=== PATIENT | male | born 1940 | race Caucasian/White ===

== ENCOUNTER 2021-08-24 18:39 | Inpatient (IN) ==
[2021-08-24] MEDS ORDERED: NITROGLYCERIN 2% OINT 1 INCH/GM PACK TOP ONE (18:51)
[2021-08-24] MEDS ORDERED: TICAGRELOR 90 MG TABLET PO STA (18:52)
[2021-08-24] MEDS ORDERED: MORPHINE 2 MG/1 ML SYRINGE IV PRN ×2 (18:52→20:22)
[2021-08-24] MEDS ORDERED: HEPARIN 5,000 UNIT/1 ML VIAL IV ONE (18:52)
[2021-08-24] MEDS ORDERED: ASPIRIN CHEW 81 MG TABLET PO STA (18:52)
[2021-08-24] MEDS ORDERED: MORPHINE 2 MG/1 ML SYRINGE ONE (18:53)
[2021-08-24] MEDS ORDERED: ASPIRIN 325 MG TABLET ONE (18:53)
[2021-08-24] MEDS ORDERED: HEPARIN 5,000 UNIT/1 ML VIAL ONE (18:53)
[2021-08-24] MEDS ORDERED: TICAGRELOR 90 MG TABLET ONE (18:53)
[2021-08-24] MEDS ORDERED: ONDANSETRON 4 MG/2 ML VIAL ONE (18:56)
[2021-08-24] MEDS: NITROGLYCERIN SL 0.4 MG TABLET SL PRN ×3 (19:00→19:10)
[2021-08-24 19:04] LABS: Basophils # 0.1 10*3/uL (0.0-0.2); Basophils % 0.5 % (0.0-0.8); Eosinophils # 0.4 10*3/uL (0.0-0.87); Eosinophils % 2.5 % (0.00-10.9); Hematocrit 44.3 VOL% (42.0-52.0); Hemoglobin 15.4 GM/DL (14.0-18.0); Immature Granulocytes % 0.7 %; Immature Granulocytes Absolute 0.11 #; Lymphocytes # 3.8 10*3/uL (1.4-4.0); Lymphocytes % 25.1 % (21.2-54.2); Mean Corpuscular HGB Conc 34.8 GM/DL (32-36); Mean Corpuscular Volume 93.3 FL (87-102); Mean Platelet Volume 9.1 FL (9.6-12.0); Monocytes # 0.7 10*3/uL (0.11-0.8); Monocytes % 4.7 % (1.7-12.7); Neutrophils % 66.5 % (38.7-73.9); Platelet Count 244 T/CUMM (130-400); Red Blood Count 4.75 MC/CUMM (3.8-5.5); White Blood Count 15.1 T/CUMM (4-12)
[2021-08-24] MEDS ORDERED: ONDANSETRON 4 MG/2 ML VIAL IV STA (19:05)
[2021-08-24] MEDS ORDERED: HEPARIN 1,000 UNIT/1 ML VIAL IV STA (19:11)
[2021-08-24] MEDS ORDERED: HEPARIN 5,000 UNIT/1 ML VIAL IV STA (19:13)
[2021-08-24 19:16] LABS: PT Patient Result 10.7 SECS (10.5-12.0)
[2021-08-24] MEDS ORDERED: fentaNYL 100 MCG/2 ML VIAL ONE (19:19)
[2021-08-24] MEDS ORDERED: NITROGLYCERIN DRIP 50 MG/250 ML BOTTLE IV ONE ×2 (19:19→20:15)
[2021-08-24] MEDS ORDERED: MIDAZOLAM 2 MG/2 ML VIAL ONE ×2 (19:19→19:48)
[2021-08-24] MEDS ORDERED: VERAPAMIL 5 MG/2 ML VIAL ONE (19:20)
[2021-08-24 19:45] LABS: Albumin 4.7 G/DL (3.4-5.0); Bilirubin,Total 0.5 MG/DL (0.20-1.00); Calcium 10.5 MG/DL (8.5-10.1); Osmolality,Calculated 292.5 MOS/KG (273-304); Potassium 4.3 MMOL/L (3.5-5.1); Total Protein 7.9 G/DL (6.4-8.2)
[2021-08-24] MEDS ORDERED: SODIUM CHLORIDE 0.9% 1,000 ML IV STA (20:10)
[2021-08-24] MEDS ORDERED: ACETAMINOPHEN 325 MG TABLET PO PRN (20:12)
[2021-08-24] MEDS ORDERED: ZALEPLON 5 MG CAPSULE PO PRN (20:12)
[2021-08-24] MEDS ORDERED: GLUCAGON 1 MG VIAL IM PRN (20:18)
[2021-08-24] MEDS ORDERED: MORPHINE 10 MG/1 ML VIAL ONE (20:25)
[2021-08-24] MEDS ORDERED: SODIUM CHLORIDE 0.9% 1,000 ML IV SCH (20:30)
[2021-08-24] MEDS ORDERED: DEXTROSE 10% 250 ML BAG IV PRN (20:34)
[2021-08-24] MEDS: NITROGLYCERIN DRIP 50 MG/250 ML BOTTLE IV PRN (20:58)
[2021-08-24] MEDS: ATORVASTATIN 40 MG TABLET PO SCH (21:55)
[2021-08-24] MEDS: INSULIN REGULAR 100 UNIT/ML SUBCUT SCH (21:56)
[2021-08-24] MEDS: HEPARIN DRIP 25,000 UNITS/500 ML PREMIX IV SCH (22:39)
[2021-08-25 03:03] LABS: Basophils % 0.2 % (0.0-0.8); Eosinophils % 0.1 % (0.00-10.9); Hematocrit 37.5 VOL% (42.0-52.0); Hemoglobin 12.9 GM/DL (14.0-18.0); Immature Granulocytes % 0.3 %; Immature Granulocytes Absolute 0.04 #; Lymphocytes # 0.9 10*3/uL (1.4-4.0); Lymphocytes % 6.4 % (21.2-54.2); Mean Corpuscular HGB Conc 34.4 GM/DL (32-36); Mean Corpuscular Volume 94.5 FL (87-102); Monocytes # 0.5 10*3/uL (0.11-0.8); Monocytes % 3.9 % (1.7-12.7); Neutrophils % 89.1 % (38.7-73.9); Platelet Count 193 T/CUMM (130-400); Red Blood Count 3.97 MC/CUMM (3.8-5.5); Red Cell Distribution Width 12.1 % (9.3-17.3); White Blood Count 13.3 T/CUMM (4-12)
[2021-08-25 03:23] LABS: Calcium 8.7 MG/DL (8.5-10.1); Osmolality,Calculated 288.5 MOS/KG (273-304); Potassium 4.6 MMOL/L (3.5-5.1)
[2021-08-25] MEDS ORDERED: HEPARIN 5,000 UNIT/1 ML VIAL IV ONE (03:39)
[2021-08-25] MEDS ORDERED: GLUCAGON 1 MG VIAL IM PRN (06:22)
[2021-08-25] MEDS ORDERED: DEXTROSE 50% 25 GM/50 ML VIAL IV PRN (06:22)
[2021-08-25] MEDS ORDERED: CEFUROXIME INJ 1,500 MG in SODIUM CHLORIDE 0.9% 100 ML IV ONE (06:22)
[2021-08-25] MEDS: PANTOPRAZOLE 40 MG TABLET PO SCH (08:32)
[2021-08-25] MEDS: ASPIRIN EC 81 MG TABLET PO SCH (08:32)
[2021-08-25] MEDS: TAMSULOSIN 0.4 MG CAPSULE PO SCH (08:32)
[2021-08-25] MEDS: DAPAGLIFLOZIN 10 MG TABLET PO SCH (08:32)
[2021-08-25] MEDS: carvediloL 3.125 MG TABLET PO SCH ×2 (08:32→17:11)
[2021-08-25] MEDS: INSULIN REGULAR 100 UNIT/ML SUBCUT SCH ×4 (08:32→20:53)
[2021-08-25] MEDS: CHLORHEXIDINE 0.12% ORAL RINSE 60 ML BOTTLE SWISH/SPIT SCH ×2 (08:32→20:58)
[2021-08-25] MEDS: VALSARTAN 80 MG TABLET PO SCH (08:33)
[2021-08-25 11:03] LABS: Arterial Base Excess iSTAT 0 MMOL/L (-2.5-2.5); Arterial Bicarbonate iSTAT 24.5 MMOL/L (20-26); Arterial O2 Saturation iSTAT 97 % (95-100); Arterial PCO2 iSTAT 39 MM HG (35-48); Arterial PO2 iSTAT 89 MM HG (80-95); Arterial Total CO2 iSTAT 26 MMO/L (23-27)
[2021-08-25] MEDS: SODIUM CHLORIDE 0.9% 1,000 ML IV SCH (11:49)
[2021-08-25 13:15] LABS: CKMB % 12.23 %
[2021-08-25 13:27] LABS: High Sensitive Troponin I* 117297.8 ng/L (0-78)
[2021-08-25] MEDS: CHLORHEXIDINE 4% SOLN 118 ML BOTTLE TOP SCH ×2 (16:36→21:51)
[2021-08-25] MEDS ORDERED: CLORAZEPATE 3.75 MG TABLET PO PRN (19:30)
[2021-08-25 19:51] LABS: CKMB % 8.58 %
[2021-08-25] MEDS: ATORVASTATIN 40 MG TABLET PO SCH (20:56)
[2021-08-26] MEDS: HEPARIN DRIP 25,000 UNITS/500 ML PREMIX IV SCH (03:53)
[2021-08-26] MEDS: NITROGLYCERIN DRIP 50 MG/250 ML BOTTLE IV PRN (03:53)
[2021-08-26] MEDS ORDERED: PAPAVERINE 60 MG/2 ML VIAL ONE (04:13)
[2021-08-26] MEDS ORDERED: VANCOMYCIN 1,000 MG VIAL ONE (04:14)
[2021-08-26] MEDS ORDERED: VANCOMYCIN 500 MG VIAL ONE (04:14)
[2021-08-26] MEDS ORDERED: CEFUROXIME INJ 1,500 MG in SODIUM CHLORIDE 0.9% 100 ML IV ONE (05:00)
[2021-08-26 05:15] LABS: Basophils % 0.4 % (0.0-0.8); Eosinophils # 0.2 10*3/uL (0.0-0.87); Eosinophils % 1.4 % (0.00-10.9); Hematocrit 35.8 VOL% (42.0-52.0); Hemoglobin 12.3 GM/DL (14.0-18.0); Immature Granulocytes % 0.4 %; Immature Granulocytes Absolute 0.04 #; Lymphocytes # 1.4 10*3/uL (1.4-4.0); Mean Corpuscular HGB Conc 34.4 GM/DL (32-36); Mean Corpuscular Volume 94.2 FL (87-102); Mean Platelet Volume 8.9 FL (9.6-12.0); Monocytes # 1.5 10*3/uL (0.11-0.8); Monocytes % 13.5 % (1.7-12.7); Neutrophils % 71.3 % (38.7-73.9); Platelet Count 167 T/CUMM (130-400); Red Cell Distribution Width 12.1 % (9.3-17.3); White Blood Count 10.9 T/CUMM (4-12)
[2021-08-26] MEDS: CHLORHEXIDINE 4% SOLN 118 ML BOTTLE TOP SCH (05:25)
[2021-08-26] MEDS ORDERED: DIAZEPAM 5 MG TABLET PO ONE (05:30)
[2021-08-26 05:42] LABS: Albumin 3.4 G/DL (3.4-5.0); Bilirubin,Total 0.9 MG/DL (0.20-1.00); Calcium 8.9 MG/DL (8.5-10.1); Osmolality,Calculated 281.5 MOS/KG (273-304); Potassium 3.7 MMOL/L (3.5-5.1); Total Protein 6.4 G/DL (6.4-8.2)
[2021-08-26] MEDS ORDERED: MIDAZOLAM 10 MG/2 ML VIAL ONE ×4 (06:02→09:39)
[2021-08-26] MEDS ORDERED: MINERAL OIL/PETROLATUM OPH OINT 3.5 GM TUBE ONE (06:02)
[2021-08-26 06:03] LABS: CKMB % 4.14 %; High Sensitive Troponin I* 33104.3 ng/L (0-78)
[2021-08-26] MEDS ORDERED: AMINOCAPROIC ACID 5,000 MG/20 ML VIAL ONE (06:04)
[2021-08-26] MEDS ORDERED: SODIUM CHLORIDE 0.9% 250 ML IV ONE ×2 (06:04→06:25)
[2021-08-26] MEDS ORDERED: SODIUM CHLORIDE 0.9% 1,000 ML IV ONE ×2 (06:04→09:55)
[2021-08-26] MEDS ORDERED: HEPARIN/NACL 0.9% 2 UNITS/ML 1,000 UNIT/500 ML BAG IV ONE (06:04)
[2021-08-26] MEDS ORDERED: LACTATED RINGERS 1,000 ML IV ONE ×2 (06:04→10:50)
[2021-08-26] MEDS ORDERED: SUFentanil 250 MCG/5 ML AMP ONE ×4 (06:09)
[2021-08-26] MEDS ORDERED: SODIUM CHLORIDE 0.9% 100 ML IV ONE (06:10)
[2021-08-26] MEDS ORDERED: VECURONIUM 10 MG VIAL IV ONE ×3 (06:19→09:39)
[2021-08-26] MEDS ORDERED: LIDOCAINE 2% 5 ML VIAL ONE ×2 (06:20→12:15)
[2021-08-26 06:21] LABS: Risk Ratio 3.53; VLDL Cholesterol 17.4 MG/DL
[2021-08-26] MEDS ORDERED: ETOMIDATE 40 MG/20 ML VIAL IV ONE (06:22)
[2021-08-26] MEDS ORDERED: ePHEDrine 50 MG/ML VIAL ONE (06:24)
[2021-08-26] MEDS ORDERED: EPINEPHrine 1 MG/ML VIAL ONE (06:25)
[2021-08-26 07:38] LABS: ABG Base Excess 0.5 MMOL/L (-2.5-2.5); ABG HCO3 24.9 MMOL/L (20-26); ABG PCO2 35.1 MM HG (35-48); ABG PH 7.446 (7.35-7.45); ABG TCO2 21.5 MMOL/L (23-27); Glucose Heart Surgery 117 MG/DL (74-106); Hematocrit Heart Surgery 34.9 PERCENT (42-52); Hemoglobin Heart Surgery 11.3 G/DL (14.0-18.0); Ionized Calcium Arterial 1.13 MMOL/L (1.21-1.46); PCO2 Patient Temp Arterial 35.1 MMHG; PH Patient Temp Arterial 7.446; Patient Temperature 37 CELCIUS; Potassium Heart/CVR 3.5 MMOL/L (3.5-5.1); Sodium Heart/CVR 141 MMOL/L (135-145)
[2021-08-26] MEDS ORDERED: SODIUM BICARBONATE 50 MEQ/50 ML VIAL IV ONE ×2 (07:38→12:17)
[2021-08-26] MEDS ORDERED: NITROPRUSSIDE 50 MG/2 ML VIAL ONE (07:38)
[2021-08-26] MEDS ORDERED: CALCIUM CHLORIDE 1,000 MG/10 ML SYRINGE IV ONE (07:39)
[2021-08-26] MEDS ORDERED: POTASSIUM CHLORIDE RIDER 20 MEQ/100 ML PREMIX IV ONE (07:39)
[2021-08-26] MEDS ORDERED: PHENYLEPHRINE DRIP 40 MG/250 ML PREMIX IV ONE (07:39)
[2021-08-26 07:53] LABS: Glucose,Urine (UA) >1000 mg/dL (Negative); Protein,Urine Negative (Negative); RBC,Urine 1 /HPF (0-4); Urine Appearance Slightly Hazy (Clear); Urine Color Yellow (Yellow); Urine Specific Gravity 1.015 (1.001-1.035); Urine pH 6.5 (4.5-8.0)
[2021-08-26 07:54] LABS: Bilirubin,Urine Negative (Negative); Blood, Urine Trace mg/dL (Negative); Ketones,Urine Trace mg/dL (Negative); Nitrite,Urine Positive (Negative)
[2021-08-26] MEDS: SODIUM CHLORIDE 0.9% 1,000 ML IV SCH (08:09)
[2021-08-26] MEDS: INSULIN REGULAR 100 UNIT/ML SUBCUT SCH (08:09)
[2021-08-26] MEDS: DAPAGLIFLOZIN 10 MG TABLET PO SCH (08:10)
[2021-08-26] MEDS: ASPIRIN EC 81 MG TABLET PO SCH (08:10)
[2021-08-26] MEDS: VALSARTAN 80 MG TABLET PO SCH (08:10)
[2021-08-26] MEDS: CHLORHEXIDINE 0.12% ORAL RINSE 60 ML BOTTLE SWISH/SPIT SCH (08:10)
[2021-08-26] MEDS: TAMSULOSIN 0.4 MG CAPSULE PO SCH (08:10)
[2021-08-26] MEDS: PANTOPRAZOLE 40 MG TABLET PO SCH (08:10)
[2021-08-26] MEDS: carvediloL 3.125 MG TABLET PO SCH (08:10)
[2021-08-26] MEDS ORDERED: PHENYLEPHRINE 1 MG/10 ML SYRINGE IV ONE (08:42)
[2021-08-26] MEDS ORDERED: propofoL 200 MG/20 ML VIAL IV ONE (08:42)
[2021-08-26 08:59] LABS: Hematocrit Heart Surgery 23.3 PERCENT (42-52); Hemoglobin Heart Surgery 7.5 G/DL (14.0-18.0); PCO2 Patient Temp Venous 33.6 MM HG; PH Patient Temp Venous 7.46; PO2 Patient Temp Venous 43.2 MM HG; Potassium Heart/CVR 4.2 MMOL/L (3.5-5.1); VBG Base Excess 0.4 MEQ/L (0-4); VBG HCO3 24.6 MEQ/L (24-28); VBG Oxygen Saturation 83.4 %; VBG PCO2 35.3 MMHG (41-51); VBG PH 7.445; VBG PO2 46.2 MMHG (17-40); VBG Total CO2 22.8 MMOL/L
[2021-08-26] MEDS ORDERED: PHENYLEPHRINE DRIP 20 MG/250 ML PREMIX IV ONE (09:21)
[2021-08-26 09:26] LABS: Hematocrit Heart Surgery 25.6 PERCENT (42-52); Hemoglobin Heart Surgery 8.2 G/DL (14.0-18.0); PH Patient Temp Venous 7.469; PO2 Patient Temp Venous 37.2 MM HG; Potassium Heart/CVR 3.9 MMOL/L (3.5-5.1); VBG Base Excess 0.1 MEQ/L (0-4); VBG HCO3 24.3 MEQ/L (24-28); VBG Oxygen Saturation 80.2 %; VBG PH 7.425; VBG PO2 45.8 MMHG (17-40); VBG Total CO2 22.6 MMOL/L
[2021-08-26] MEDS ORDERED: CALCIUM CHLORIDE 1,000 MG/10 ML VIAL IV ONE (09:43)
[2021-08-26 09:56] LABS: Hematocrit Heart Surgery 25.6 PERCENT (42-52); Hemoglobin Heart Surgery 8.2 G/DL (14.0-18.0); PCO2 Patient Temp Venous 37.6 MM HG; PH Patient Temp Venous 7.419; PO2 Patient Temp Venous 36.6 MM HG; Potassium Heart/CVR 4.2 MMOL/L (3.5-5.1); VBG HCO3 24.1 MEQ/L (24-28); VBG Oxygen Saturation 71.7 %; VBG PCO2 39.4 MMHG (41-51); VBG PH 7.404; VBG PO2 39.3 MMHG (17-40)
[2021-08-26] MEDS ORDERED: FAMOTIDINE 20 MG/2 ML VIAL IV ONE (10:21)
[2021-08-26] MEDS ORDERED: diphenhydrAMINE 50 MG/1 ML VIAL ONE (10:22)
[2021-08-26 10:28] LABS: ABG Base Excess 0.1 MMOL/L (-2.5-2.5); ABG HCO3 24.6 MMOL/L (20-26); ABG PCO2 35.5 MM HG (35-48); ABG PH 7.438 (7.35-7.45); ABG TCO2 22.3 MMOL/L (23-27); Glucose Heart Surgery 231 MG/DL (74-106); Hematocrit Heart Surgery 25.3 PERCENT (42-52); Hemoglobin Heart Surgery 8.1 G/DL (14.0-18.0); Ionized Calcium Arterial 1.23 MMOL/L (1.21-1.46); PCO2 Patient Temp Arterial 35.5 MMHG; PH Patient Temp Arterial 7.438; Patient Temperature 37 CELCIUS; Potassium Heart/CVR 3.7 MMOL/L (3.5-5.1); Sodium Heart/CVR 139 MMOL/L (135-145)
[2021-08-26] MEDS ORDERED: methylPREDNISolone SOD SUC 125 MG/2 ML VIAL ONE (10:28)
[2021-08-26] MEDS ORDERED: INSULIN REGULAR 100 UNIT/ML IV ONE (10:49)
[2021-08-26] MEDS ORDERED: NITROPRUSSIDE 100 MG in DEXTROSE 5% 250 ML IV PRN (10:49)
[2021-08-26] MEDS ORDERED: ONDANSETRON 4 MG/2 ML VIAL IV PRN (10:49)
[2021-08-26] MEDS ORDERED: INSULIN REGULAR DRIP 100 ML IV SCH (10:49)
[2021-08-26] MEDS ORDERED: MORPHINE 10 MG/1 ML VIAL IV PRN (10:49)
[2021-08-26] MEDS ORDERED: ACETAMINOPHEN 650 MG SUPP RECTAL PRN (10:49)
[2021-08-26] MEDS ORDERED: VECURONIUM 10 MG VIAL IV PRN ×2 (10:49)
[2021-08-26] MEDS ORDERED: MIDAZOLAM 10 MG/2 ML VIAL IV PRN (10:49)
[2021-08-26] MEDS ORDERED: MAGNESIUM SULF RIDER 2 GM/50 ML PREMIX IV PRN (10:49)
[2021-08-26] MEDS ORDERED: DEXTROSE 50% 25 GM/50 ML VIAL IV PRN ×2 (10:49)
[2021-08-26] MEDS ORDERED: MAGNESIUM SULF RIDER 4 GM/100 ML PREMIX IV PRN (10:49)
[2021-08-26] MEDS ORDERED: CALCIUM CHLORIDE 1,000 MG/10 ML SYRINGE IV PRN (10:49)
[2021-08-26] MEDS ORDERED: DEXTROSE 10% 250 ML BAG IV PRN ×3 (11:02→11:30)
[2021-08-26] MEDS ORDERED: PROTAMINE SULFATE 50 MG/5 ML VIAL IV ONE ×2 (11:10→12:17)
[2021-08-26 11:12] LABS: ABG Base Excess -2.6 MMOL/L (-2.5-2.5); ABG HCO3 22.2 MMOL/L (20-26); ABG PCO2 39.5 MM HG (35-48); ABG PH 7.363 (7.35-7.45); Glucose Heart Surgery 323 MG/DL (74-106); Hematocrit Heart Surgery 25.3 PERCENT (42-52); Hemoglobin Heart Surgery 8.1 G/DL (14.0-18.0); Potassium Heart/CVR 3.8 MMOL/L (3.5-5.1)
[2021-08-26] MEDS: SODIUM CHLORIDE 0.45% 1,000 ML IV SCH ×2 (11:48)
[2021-08-26] MEDS: PHENYLEPHRINE DRIP 40 MG/250 ML PREMIX IV PRN ×2 (11:48→23:23)
[2021-08-26] MEDS: LACTATED RINGERS 250 ML IV PRN ×15 (11:48→23:00)
[2021-08-26] MEDS ORDERED: THROMBIN TOPICAL (RECOMBINANT) 5,000 UNIT VIAL TOP ONE (11:53)
[2021-08-26] MEDS ORDERED: SEVOFLURANE 1 UNIT/15 MINUTE INH ONE (12:13)
[2021-08-26] MEDS ORDERED: ALBUMIN 25% 25 GM/100 ML VIAL IV ONE (12:14)
[2021-08-26] MEDS ORDERED: DEXTROSE 5% KCL 20 MEQ 20 MEQ/1,000 ML BAG IV ONE (12:15)
[2021-08-26] MEDS ORDERED: MAGNESIUM SULFATE 5 GM/10 ML VIAL IV ONE (12:15)
[2021-08-26] MEDS ORDERED: methylPREDNISolone SOD SUC 1,000 MG/8 ML VIAL ONE (12:15)
[2021-08-26] MEDS ORDERED: PROTAMINE SULFATE 250 MG/25 ML VIAL IV ONE (12:15)
[2021-08-26] MEDS: ALBUMIN 5% 12.5 GM/250 ML VIAL IV PRN ×6 (12:16→23:45)
[2021-08-26] MEDS ORDERED: FUROSEMIDE 20 MG/2 ML VIAL ONE (12:16)
[2021-08-26] MEDS ORDERED: HEPARIN 10,000 UNIT/10 ML VIAL ONE (12:16)
[2021-08-26] MEDS ORDERED: MANNITOL 12.5 GM/50 ML VIAL IV ONE (12:16)
[2021-08-26] MEDS ORDERED: DOBUTamine 500 MG/250 ML PREMIX IV PRN (12:34)
[2021-08-26 12:45] LABS: ABG Base Excess -1.7 MMOL/L (-2.5-2.5); ABG PCO2 32.2 MM HG (35-48); ABG PH 7.441 (7.35-7.45); ABG TCO2 20.4 MMOL/L (23-27); Glucose Heart Surgery 304 MG/DL (74-106); Hematocrit Heart Surgery 24.7 PERCENT (42-52); Hemoglobin Heart Surgery 7.9 G/DL (14.0-18.0); Ionized Calcium Arterial 1.09 MMOL/L (1.21-1.46); PCO2 Patient Temp Arterial 30.7 MMHG; PH Patient Temp Arterial 7.455; Patient Temperature 36 CELCIUS; Potassium Heart/CVR 3.8 MMOL/L (3.5-5.1); Sodium Heart/CVR 143 MMOL/L (135-145)
[2021-08-26 12:47] LABS: Basophils % 0.2 % (0.0-0.8); Eosinophils # 0.1 10*3/uL (0.0-0.87); Eosinophils % 0.4 % (0.00-10.9); Hematocrit 22.9 VOL% (42.0-52.0); Hemoglobin 7.8 GM/DL (14.0-18.0); Immature Granulocytes % 0.8 %; Immature Granulocytes Absolute 0.13 #; Lymphocytes # 1.4 10*3/uL (1.4-4.0); Mean Corpuscular HGB Conc 34.1 GM/DL (32-36); Mean Corpuscular Volume 94.6 FL (87-102); Mean Platelet Volume 9.8 FL (9.6-12.0); Monocytes # 1.4 10*3/uL (0.11-0.8); Monocytes % 8.4 % (1.7-12.7); Neutrophils % 82.2 % (38.7-73.9); Platelet Count 219 T/CUMM (130-400); Red Blood Count 2.42 MC/CUMM (3.8-5.5); Red Cell Distribution Width 13.6 % (9.3-17.3); White Blood Count 17.2 T/CUMM (4-12)
[2021-08-26] MEDS: DOBUTamine 500 MG/250 ML PREMIX IV SCH (12:52)
[2021-08-26 12:57] LABS: INR 1.2; PT Patient Result 12.8 SECS (10.5-12.0); Partial Thromboplastin Time 28.8 SECS (23.8-32.1)
[2021-08-26] MEDS: POTASSIUM CHLORIDE RIDER 20 MEQ/100 ML PREMIX IV PRN ×3 (13:06→22:54)
[2021-08-26 13:13] LABS: Albumin 2.9 G/DL (3.4-5.0); Bilirubin,Total 1.3 MG/DL (0.20-1.00); Calcium 7.8 MG/DL (8.5-10.1); Osmolality,Calculated 300.7 MOS/KG (273-304); Potassium 3.9 MMOL/L (3.5-5.1); Total Protein 5.1 G/DL (6.4-8.2)
[2021-08-26 13:21] LABS: CKMB % 5.98 %
[2021-08-26] MEDS: POTASSIUM CHLORIDE RIDER 10 MEQ/100 ML PREMIX IV PRN ×2 (13:44→18:44)
[2021-08-26 14:05] LABS: ABG Base Excess -2.9 MMOL/L (-2.5-2.5); ABG Oxygen Saturation 99.9 % (95-100); ABG PCO2 31.6 MM HG (35-48); ABG PH 7.427 (7.35-7.45); ABG TCO2 19.3 MMOL/L (23-27); Glucose Heart Surgery 269 MG/DL (74-106); Hematocrit Heart Surgery 26.1 PERCENT (42-52); Hemoglobin Heart Surgery 8.4 G/DL (14.0-18.0); Potassium Heart/CVR 4.7 MMOL/L (3.5-5.1)
[2021-08-26] MEDS ORDERED: CALCIUM GLUCONATE RIDER 1,000 MG/50 ML PREMIX IV ONE (14:38)
[2021-08-26 15:40] LABS: ABG Base Excess -1.6 MMOL/L (-2.5-2.5); ABG HCO3 23.1 MMOL/L (20-26); ABG Oxygen Saturation 99.6 % (95-100); ABG PCO2 31.6 MM HG (35-48); ABG PH 7.447 (7.35-7.45); ABG TCO2 19.9 MMOL/L (23-27); Glucose Heart Surgery 221 MG/DL (74-106); Hematocrit Heart Surgery 29.7 PERCENT (42-52); Hemoglobin Heart Surgery 9.6 G/DL (14.0-18.0); Potassium Heart/CVR 3.8 MMOL/L (3.5-5.1)
[2021-08-26 17:44] LABS: ABG Base Excess -2.4 MMOL/L (-2.5-2.5); ABG HCO3 22.4 MMOL/L (20-26); ABG Oxygen Saturation 99.5 % (95-100); ABG PCO2 36.7 MM HG (35-48); ABG PH 7.389 (7.35-7.45); ABG TCO2 20.1 MMOL/L (23-27); Glucose Heart Surgery 150 MG/DL (74-106); Hemoglobin Heart Surgery 10.4 G/DL (14.0-18.0); Potassium Heart/CVR 3.5 MMOL/L (3.5-5.1)
[2021-08-26] MEDS: CEFUROXIME INJ 1,500 MG in SODIUM CHLORIDE 0.9% 100 ML IV SCH (18:06)
[2021-08-26] MEDS ORDERED: FUROSEMIDE 40 MG/4 ML VIAL IV ONE (19:41)
[2021-08-26 20:36] LABS: ABG Base Excess -1.9 MMOL/L (-2.5-2.5); ABG HCO3 22.9 MMOL/L (20-26); ABG Oxygen Saturation 99.4 % (95-100); ABG PCO2 37.4 MM HG (35-48); ABG PH 7.391 (7.35-7.45); ABG TCO2 20.7 MMOL/L (23-27); Glucose Heart Surgery 150 MG/DL (74-106); Hematocrit Heart Surgery 30.8 PERCENT (42-52); Hemoglobin Heart Surgery 9.9 G/DL (14.0-18.0)
[2021-08-26 21:04] LABS: CKMB % 6.55 %; High Sensitive Troponin I* 18832.4 ng/L (0-78)
[2021-08-27] MEDS: LACTATED RINGERS 250 ML IV PRN (00:05)
[2021-08-27 00:32] LABS: ABG Base Excess -0.7 MMOL/L (-2.5-2.5); ABG HCO3 23.8 MMOL/L (20-26); ABG Oxygen Saturation 99.3 % (95-100); ABG PCO2 36.9 MM HG (35-48); ABG PH 7.413 (7.35-7.45); ABG TCO2 21.6 MMOL/L (23-27); Glucose Heart Surgery 113 MG/DL (74-106); Hematocrit Heart Surgery 28.8 PERCENT (42-52); Hemoglobin Heart Surgery 9.3 G/DL (14.0-18.0); Potassium Heart/CVR 3.6 MMOL/L (3.5-5.1)
[2021-08-27] MEDS: POTASSIUM CHLORIDE RIDER 20 MEQ/100 ML PREMIX IV PRN ×3 (00:50→22:21)
[2021-08-27] MEDS: MIDAZOLAM 2 MG/2 ML VIAL IV PRN ×4 (01:41→06:39)
[2021-08-27] MEDS: POTASSIUM CHLORIDE RIDER 10 MEQ/100 ML PREMIX IV PRN ×3 (02:00→23:33)
[2021-08-27] MEDS: CHLORHEXIDINE 0.12% ORAL RINSE 60 ML BOTTLE SWISH/SPIT SCH ×3 (02:09→20:02)
[2021-08-27] MEDS: CHLORHEXIDINE 4% SOLN 118 ML BOTTLE TOP PRN (02:11)
[2021-08-27] MEDS: INSULIN REGULAR 100 UNIT/ML IV PRN ×2 (02:37→05:13)
[2021-08-27 03:43] LABS: ABG Base Excess -1.8 MMOL/L (-2.5-2.5); ABG HCO3 22.9 MMOL/L (20-26); ABG Oxygen Saturation 98.7 % (95-100); ABG PH 7.404 (7.35-7.45); ABG TCO2 20.4 MMOL/L (23-27); Glucose Heart Surgery 121 MG/DL (74-106); Hematocrit Heart Surgery 32.3 PERCENT (42-52); Hemoglobin Heart Surgery 10.4 G/DL (14.0-18.0); Potassium Heart/CVR 3.9 MMOL/L (3.5-5.1)
[2021-08-27 04:02] LABS: Basophils % 0.2 % (0.0-0.8); Hematocrit 30.7 VOL% (42.0-52.0); Hemoglobin 10.4 GM/DL (14.0-18.0); Immature Granulocytes % 0.3 %; Immature Granulocytes Absolute 0.03 #; Lymphocytes # 0.9 10*3/uL (1.4-4.0); Lymphocytes % 7.6 % (21.2-54.2); Mean Corpuscular HGB Conc 33.9 GM/DL (32-36); Mean Corpuscular Volume 86.7 FL (87-102); Mean Platelet Volume 10.2 FL (9.6-12.0); Monocytes % 8.8 % (1.7-12.7); Neutrophils % 83.1 % (38.7-73.9); Platelet Count 105 T/CUMM (130-400); Red Blood Count 3.54 MC/CUMM (3.8-5.5); Red Cell Distribution Width 15.9 % (9.3-17.3); White Blood Count 11.3 T/CUMM (4-12)
[2021-08-27 04:11] LABS: Albumin 3.4 G/DL (3.4-5.0); Bilirubin,Direct 0.3 MG/DL (0.0-0.20); Bilirubin,Total 1.1 MG/DL (0.20-1.00); Calcium 7.6 MG/DL (8.5-10.1); Osmolality,Calculated 290.7 MOS/KG (273-304); Total Protein 5.6 G/DL (6.4-8.2)
[2021-08-27 04:25] LABS: CKMB % 8.84 %
[2021-08-27 04:30] LABS: High Sensitive Troponin I* 25658.2 ng/L (0-78)
[2021-08-27] MEDS: CEFUROXIME INJ 1,500 MG in SODIUM CHLORIDE 0.9% 100 ML IV SCH ×2 (05:30→18:18)
[2021-08-27] MEDS: DEXMEDETOMIDINE 200 MCG in SODIUM CHLORIDE 0.9% 48 ML IV PRN ×2 (06:35→09:33)
[2021-08-27 06:43] LABS: ABG Base Excess -2.6 MMOL/L (-2.5-2.5); ABG HCO3 22.2 MMOL/L (20-26); ABG PCO2 35.1 MM HG (35-48); ABG PH 7.398 (7.35-7.45); ABG TCO2 19.5 MMOL/L (23-27); Glucose Heart Surgery 140 MG/DL (74-106); Hematocrit Heart Surgery 32.7 PERCENT (42-52); Hemoglobin Heart Surgery 10.6 G/DL (14.0-18.0); Potassium Heart/CVR 4.2 MMOL/L (3.5-5.1)
[2021-08-27] MEDS: INSULIN REGULAR 100 UNIT/ML SUBCUT SCH ×4 (07:53→20:01)
[2021-08-27] MEDS ORDERED: INSULIN REGULAR 100 UNIT/ML SUBCUT SCH (08:00)
[2021-08-27] MEDS: SODIUM CHLORIDE 0.45% 1,000 ML IV SCH ×2 (12:19)
[2021-08-27] MEDS: DOBUTamine 500 MG/250 ML PREMIX IV SCH (13:33)
[2021-08-27 13:52] LABS: ABG Base Excess -2.6 MMOL/L (-2.5-2.5); ABG HCO3 22.3 MMOL/L (20-26); ABG Oxygen Saturation 98.8 % (95-100); ABG PCO2 41.8 MM HG (35-48); ABG PH 7.348 (7.35-7.45); ABG TCO2 20.6 MMOL/L (23-27); Glucose Heart Surgery 160 MG/DL (74-106); Hematocrit Heart Surgery 35.2 PERCENT (42-52); Hemoglobin Heart Surgery 11.4 G/DL (14.0-18.0); Potassium Heart/CVR 4.2 MMOL/L (3.5-5.1)
[2021-08-27] MEDS: PIPERACILLIN/TAZOBACTAM 3,375 MG in SODIUM CHLORIDE 0.9% 100 ML IV SCH ×2 (15:12→22:21)
[2021-08-27] MEDS: ALBUMIN 5% 12.5 GM/250 ML VIAL IV PRN ×2 (16:10→16:37)
[2021-08-27 16:25] LABS: ABG HCO3 22.8 MMOL/L (20-26); ABG Oxygen Saturation 99.3 % (95-100); ABG PCO2 39.6 MM HG (35-48); ABG PH 7.373 (7.35-7.45); ABG TCO2 20.8 MMOL/L (23-27); Glucose Heart Surgery 150 MG/DL (74-106); Hemoglobin Heart Surgery 10.7 G/DL (14.0-18.0); Potassium Heart/CVR 4.1 MMOL/L (3.5-5.1)
[2021-08-27] MEDS: oxyCODONE/ACETAMINOPHEN 5-325 MG TABLET PO PRN (20:57)
[2021-08-27] MEDS: CLORAZEPATE 7.5 MG TABLET PO PRN (20:57)
[2021-08-27 21:06] LABS: ABG HCO3 21.8 MMOL/L (20-26); ABG PCO2 32.5 MM HG (35-48); ABG PH 7.415 (7.35-7.45); ABG PO2 70.1 MM HG (80-95); ABG TCO2 18.9 MMOL/L (23-27); Glucose Heart Surgery 161 MG/DL (74-106); Hematocrit Heart Surgery 31.4 PERCENT (42-52); Hemoglobin Heart Surgery 10.2 G/DL (14.0-18.0); Potassium Heart/CVR 3.9 MMOL/L (3.5-5.1)
[2021-08-27] MEDS ORDERED: FUROSEMIDE 40 MG/4 ML VIAL IV ONE (21:31)
[2021-08-27] MEDS: HALOPERIDOL 5 MG/ML AMP IV PRN (21:54)
[2021-08-28] MEDS: CLORAZEPATE 7.5 MG TABLET PO PRN (00:27)
[2021-08-28] MEDS: oxyCODONE/ACETAMINOPHEN 5-325 MG TABLET PO PRN (00:28)
[2021-08-28 03:30] LABS: ABG Base Excess -1.1 MMOL/L (-2.5-2.5); ABG HCO3 23.5 MMOL/L (20-26); ABG Oxygen Saturation 98.5 % (95-100); ABG PH 7.361 (7.35-7.45); ABG TCO2 22.3 MMOL/L (23-27)
[2021-08-28 03:35] LABS: Basophils % 0.1 % (0.0-0.8); Hematocrit 29.4 VOL% (42.0-52.0); Hemoglobin 9.8 GM/DL (14.0-18.0); Immature Granulocytes % 0.6 %; Immature Granulocytes Absolute 0.09 #; Lymphocytes # 0.5 10*3/uL (1.4-4.0); Lymphocytes % 3.7 % (21.2-54.2); Mean Corpuscular HGB Conc 33.3 GM/DL (32-36); Mean Corpuscular Volume 89.1 FL (87-102); Mean Platelet Volume 10.5 FL (9.6-12.0); Monocytes # 1.4 10*3/uL (0.11-0.8); Monocytes % 9.6 % (1.7-12.7); Platelet Count 116 T/CUMM (130-400); Red Cell Distribution Width 16.3 % (9.3-17.3); White Blood Count 14.5 T/CUMM (4-12)
[2021-08-28] MEDS: HALOPERIDOL 5 MG/ML AMP IV PRN ×2 (03:36→21:33)
[2021-08-28 03:50] LABS: Albumin 3.5 G/DL (3.4-5.0); Bilirubin,Direct 0.22 MG/DL (0.0-0.20); Bilirubin,Total 0.7 MG/DL (0.20-1.00); Calcium 7.7 MG/DL (8.5-10.1); Potassium 3.9 MMOL/L (3.5-5.1)
[2021-08-28 03:54] LABS: Band Neutrophils 3 % (0-10); Lymphocytes 8 % (20-55); Total Cells Counted 100
[2021-08-28 03:55] LABS: Platelet Estimate Adequate
[2021-08-28] MEDS: POTASSIUM CHLORIDE RIDER 20 MEQ/100 ML PREMIX IV PRN (04:02)
[2021-08-28] MEDS: POTASSIUM CHLORIDE RIDER 10 MEQ/100 ML PREMIX IV PRN (05:51)
[2021-08-28] MEDS ORDERED: NITROGLYCERIN DRIP 50 MG/250 ML BOTTLE IV ONE (07:24)
[2021-08-28] MEDS: NITROGLYCERIN DRIP 50 MG/250 ML BOTTLE IV PRN (07:30)
[2021-08-28 07:38] LABS: ABG Base Excess -1.6 MMOL/L (-2.5-2.5); ABG HCO3 23.1 MMOL/L (20-26); ABG Oxygen Saturation 98.5 % (95-100); ABG PCO2 39.9 MM HG (35-48); ABG PH 7.376 (7.35-7.45); ABG TCO2 21.2 MMOL/L (23-27); Glucose Heart Surgery 227 MG/DL (74-106); Hematocrit Heart Surgery 32.2 PERCENT (42-52); Hemoglobin Heart Surgery 10.4 G/DL (14.0-18.0); Potassium Heart/CVR 4.3 MMOL/L (3.5-5.1)
[2021-08-28] MEDS: PIPERACILLIN/TAZOBACTAM 3,375 MG in SODIUM CHLORIDE 0.9% 100 ML IV SCH ×2 (08:04→15:18)
[2021-08-28] MEDS: INSULIN REGULAR 100 UNIT/ML SUBCUT SCH ×4 (08:05→20:05)
[2021-08-28] MEDS ORDERED: FUROSEMIDE 40 MG/4 ML VIAL IV ONE (09:10)
[2021-08-28] MEDS: KETOROLAC 30 MG/1 ML VIAL IV PRN (09:36)
[2021-08-28] MEDS: CHLORHEXIDINE 0.12% ORAL RINSE 60 ML BOTTLE SWISH/SPIT SCH ×2 (09:45→20:06)
[2021-08-28] MEDS: PANTOPRAZOLE 40 MG VIAL IV SCH (09:45)
[2021-08-28] MEDS: ASPIRIN CHEW 81 MG TABLET PO SCH (09:45)
[2021-08-28] MEDS: VALSARTAN 80 MG TABLET PO SCH (10:17)
[2021-08-28] MEDS: carvediloL 3.125 MG TABLET PO SCH ×2 (10:17→20:05)
[2021-08-28] MEDS: DAPAGLIFLOZIN 10 MG TABLET PO SCH (10:18)
[2021-08-28] MEDS ORDERED: traMADol 50 MG TABLET PO PRN (11:26)
[2021-08-28] MEDS: SODIUM CHLORIDE 0.45% 1,000 ML IV SCH ×2 (12:27)
[2021-08-28] MEDS: PHENAZOPYRIDINE 95 MG TABLET PO SCH ×2 (13:11→17:15)
[2021-08-28] MEDS: DOBUTamine 500 MG/250 ML PREMIX IV SCH (13:11)
[2021-08-28 14:02] LABS: CKMB % 4.4 %; High Sensitive Troponin I* 17327.1 ng/L (0-78)
[2021-08-28] MEDS: ALBUMIN 5% 12.5 GM/250 ML VIAL IV PRN (14:18)
[2021-08-28] MEDS ORDERED: HEPARIN/NACL 0.9% 2 UNITS/ML 1,000 UNIT/500 ML BAG IV ONE (16:17)
[2021-08-28] MEDS ORDERED: PHENAZOPYRIDINE 95 MG TABLET PO SCH (17:00)
[2021-08-28] MEDS: ATORVASTATIN 80 MG TABLET PO SCH (20:06)
[2021-08-29] MEDS: PIPERACILLIN/TAZOBACTAM 3,375 MG in SODIUM CHLORIDE 0.9% 100 ML IV SCH ×4 (00:13→23:11)
[2021-08-29 04:07] LABS: Basophils % 0.1 % (0.0-0.8); Hematocrit 26.9 VOL% (42.0-52.0); Hemoglobin 9.1 GM/DL (14.0-18.0); Immature Granulocytes % 0.9 %; Immature Granulocytes Absolute 0.14 #; Lymphocytes # 0.7 10*3/uL (1.4-4.0); Lymphocytes % 4.1 % (21.2-54.2); Mean Corpuscular HGB Conc 33.8 GM/DL (32-36); Mean Corpuscular Volume 89.4 FL (87-102); Mean Platelet Volume 10.2 FL (9.6-12.0); Monocytes # 1.2 10*3/uL (0.11-0.8); Monocytes % 7.5 % (1.7-12.7); Neutrophils % 87.4 % (38.7-73.9); Platelet Count 129 T/CUMM (130-400); Red Blood Count 3.01 MC/CUMM (3.8-5.5); Red Cell Distribution Width 15.7 % (9.3-17.3); White Blood Count 16.2 T/CUMM (4-12)
[2021-08-29 04:31] LABS: CKMB % 2.1 %; High Sensitive Troponin I* 14152.6 ng/L (0-78)
[2021-08-29 05:44] LABS: ABG Base Excess 0.2 MMOL/L (-2.5-2.5); ABG HCO3 24.6 MMOL/L (20-26); ABG PCO2 34.4 MM HG (35-48); ABG PH 7.449 (7.35-7.45); ABG PO2 74.6 MM HG (80-95)
[2021-08-29 05:59] LABS: Albumin 3.2 G/DL (3.4-5.0); Bilirubin,Total 1.2 MG/DL (0.20-1.00); Calcium 8.1 MG/DL (8.5-10.1); Osmolality,Calculated 293.1 MOS/KG (273-304); Potassium 3.7 MMOL/L (3.5-5.1); Total Protein 5.7 G/DL (6.4-8.2)
[2021-08-29] MEDS: POTASSIUM CHLORIDE RIDER 20 MEQ/100 ML PREMIX IV PRN ×3 (06:14→22:30)
[2021-08-29] MEDS: INSULIN REGULAR 100 UNIT/ML SUBCUT SCH ×4 (08:21→20:31)
[2021-08-29] MEDS: VALSARTAN 80 MG TABLET PO SCH (08:40)
[2021-08-29] MEDS: PANTOPRAZOLE 40 MG VIAL IV SCH (08:40)
[2021-08-29] MEDS: DAPAGLIFLOZIN 10 MG TABLET PO SCH (08:40)
[2021-08-29] MEDS: ASPIRIN CHEW 81 MG TABLET PO SCH (08:40)
[2021-08-29] MEDS: PHENAZOPYRIDINE 95 MG TABLET PO SCH ×2 (08:40→15:45)
[2021-08-29] MEDS: carvediloL 3.125 MG TABLET PO SCH ×2 (08:40→20:00)
[2021-08-29] MEDS: AMIODARONE 200 MG TABLET PO SCH ×2 (08:45→20:00)
[2021-08-29] MEDS: CHLORHEXIDINE 0.12% ORAL RINSE 60 ML BOTTLE SWISH/SPIT SCH ×2 (10:10→20:00)
[2021-08-29] MEDS: SODIUM CHLORIDE 0.45% 1,000 ML IV SCH ×2 (11:11)
[2021-08-29] MEDS ORDERED: FUROSEMIDE 40 MG/4 ML VIAL IV ONE (12:57)
[2021-08-29] MEDS: DOBUTamine 500 MG/250 ML PREMIX IV SCH (13:07)
[2021-08-29] MEDS ORDERED: traZODone 50 MG TABLET PO PRN (15:19)
[2021-08-29] MEDS ORDERED: traZODone 50 MG TABLET PO ONE (15:20)
[2021-08-29 15:28] LABS: Glucose Heart Surgery 195 MG/DL (74-106); Hematocrit Heart Surgery 31.9 PERCENT (42-52); Hemoglobin Heart Surgery 10.3 G/DL (14.0-18.0); PCO2 Patient Temp Venous 41.2 MM HG; PH Patient Temp Venous 7.422; PO2 Patient Temp Venous 25.8 MM HG; Patient Temperature 37 CELCIUS; Potassium Heart/CVR 3.8 MMOL/L (3.5-5.1); VBG Base Excess 2.3 MEQ/L (0-4); VBG HCO3 25.5 MEQ/L (24-28); VBG Oxygen Saturation 42.3 %; VBG PCO2 41.2 MMHG (41-51); VBG PH 7.422; VBG PO2 25.8 MMHG (17-40); VBG Total CO2 24.6 MMOL/L
[2021-08-29] MEDS: ASCORBIC ACID 500 MG TABLET PO SCH ×2 (15:45→20:01)
[2021-08-29 17:11] LABS: Hyaline Casts,Urine 3 /LPF (0-3); Mucus,Urine Occasional /LPF (Occasional); RBC,Urine 17 /HPF (0-4)
[2021-08-29 17:12] LABS: Bilirubin,Urine Negative (Negative); Blood, Urine Large mg/dL (Negative); Glucose,Urine (UA) 500 mg/dL (Negative); Ketones,Urine Trace mg/dL (Negative); Nitrite,Urine Positive (Negative); Protein,Urine Negative (Negative); Urine Appearance Clear (Clear); Urine Color Yellow (Yellow); Urine Urobilinogen 0.2 eU/dL (<2.0); Urine pH 5.5 (4.5-8.0)
[2021-08-29] MEDS ORDERED: QUEtiapine 25 MG TABLET PO ONE (18:30)
[2021-08-29] MEDS: NITROGLYCERIN DRIP 50 MG/250 ML BOTTLE IV PRN (19:53)
[2021-08-29] MEDS: ATORVASTATIN 80 MG TABLET PO SCH (20:00)
[2021-08-30] MEDS ORDERED: QUEtiapine 25 MG TABLET PO ONE (00:01)
[2021-08-30] MEDS: LACTATED RINGERS 250 ML IV PRN (02:26)
[2021-08-30] MEDS: PHENYLEPHRINE DRIP 40 MG/250 ML PREMIX IV PRN (03:25)
[2021-08-30 04:56] LABS: Basophils % 0.1 % (0.0-0.8); Hematocrit 27.9 VOL% (42.0-52.0); Hemoglobin 9.4 GM/DL (14.0-18.0); Immature Granulocytes % 1.1 %; Immature Granulocytes Absolute 0.19 #; Lymphocytes % 6.2 % (21.2-54.2); Mean Corpuscular HGB Conc 33.7 GM/DL (32-36); Mean Corpuscular Volume 89.4 FL (87-102); Mean Platelet Volume 9.7 FL (9.6-12.0); Monocytes # 1.6 10*3/uL (0.11-0.8); Monocytes % 9.4 % (1.7-12.7); Neutrophils % 83.2 % (38.7-73.9); Platelet Count 177 T/CUMM (130-400); Red Blood Count 3.12 MC/CUMM (3.8-5.5); Red Cell Distribution Width 15.7 % (9.3-17.3); White Blood Count 16.6 T/CUMM (4-12)
[2021-08-30 05:14] LABS: Blood Urea Nitrogen 42 MG/DL (7-18); Carbon Dioxide 29 MMOL/L (21-32); Chloride 109 MMOL/L (98-107); Glucose 122 MG/DL (74-106); Osmolality,Calculated 299.7 MOS/KG (273-304); Potassium 3.7 MMOL/L (3.5-5.1); Sodium 145 MMOL/L (136-145)
[2021-08-30] MEDS: POTASSIUM CHLORIDE RIDER 20 MEQ/100 ML PREMIX IV PRN (06:11)
[2021-08-30] MEDS: PIPERACILLIN/TAZOBACTAM 3,375 MG in SODIUM CHLORIDE 0.9% 100 ML IV SCH (06:11)
[2021-08-30] MEDS: POTASSIUM CHLORIDE RIDER 10 MEQ/100 ML PREMIX IV PRN (07:30)
[2021-08-30] MEDS: ASPIRIN CHEW 81 MG TABLET PO SCH (09:41)
[2021-08-30] MEDS: DAPAGLIFLOZIN 10 MG TABLET PO SCH (09:41)
[2021-08-30] MEDS: ASCORBIC ACID 500 MG TABLET PO SCH ×2 (09:41→20:43)
[2021-08-30] MEDS: carvediloL 3.125 MG TABLET PO SCH ×2 (09:41→20:42)
[2021-08-30] MEDS: PHENAZOPYRIDINE 95 MG TABLET PO SCH ×2 (09:41→16:25)
[2021-08-30] MEDS: PANTOPRAZOLE 40 MG TABLET PO SCH (09:41)
[2021-08-30] MEDS: AMIODARONE 200 MG TABLET PO SCH ×2 (09:42→20:42)
[2021-08-30] MEDS: QUEtiapine 25 MG TABLET PO SCH ×3 (09:42→20:43)
[2021-08-30] MEDS: INSULIN REGULAR 100 UNIT/ML SUBCUT SCH ×4 (10:18→20:42)
[2021-08-30] MEDS: CHLORHEXIDINE 0.12% ORAL RINSE 60 ML BOTTLE SWISH/SPIT SCH ×2 (10:19→20:42)
[2021-08-30] MEDS: SODIUM CHLORIDE 0.9% 1,000 ML IV SCH (10:19)
[2021-08-30] MEDS: DOBUTamine 500 MG/250 ML PREMIX IV SCH (16:25)
[2021-08-30] MEDS: ATORVASTATIN 80 MG TABLET PO SCH (20:42)
[2021-08-30] MEDS: DOCUSATE SODIUM 100 MG CAPSULE PO SCH (20:42)
[2021-08-31] MEDS ORDERED: DILTIAZEM 25 MG/5 ML VIAL IV ONE (00:34)
[2021-08-31] MEDS ORDERED: AMIODARONE INJ 100 MG in DEXTROSE 5% 100 ML IV ONE (00:35)
[2021-08-31] MEDS ORDERED: AMIODARONE 150 MG/3 ML VIAL ONE (00:38)
[2021-08-31] MEDS ORDERED: AMIODARONE 450 MG/9 ML VIAL IV ONE (00:39)
[2021-08-31] MEDS ORDERED: AMIODARONE INJ 450 MG in DEXTROSE 5% 241 ML IV SCH (01:00)
[2021-08-31] MEDS: DILTIAZEM INJ 100 MG in SODIUM CHLORIDE 0.9% 100 ML IV SCH (01:03)
[2021-08-31 04:21] LABS: Basophils % 0.1 % (0.0-0.8); Eosinophils # 0.1 10*3/uL (0.0-0.87); Eosinophils % 0.7 % (0.00-10.9); Hematocrit 29.7 VOL% (42.0-52.0); Hemoglobin 9.5 GM/DL (14.0-18.0); Immature Granulocytes % 0.9 %; Immature Granulocytes Absolute 0.15 #; Lymphocytes % 6.6 % (21.2-54.2); Mean Platelet Volume 9.4 FL (9.6-12.0); Monocytes # 1.3 10*3/uL (0.11-0.8); Monocytes % 8.3 % (1.7-12.7); Neutrophils % 83.4 % (38.7-73.9); Platelet Count 199 T/CUMM (130-400); Red Blood Count 3.23 MC/CUMM (3.8-5.5); Red Cell Distribution Width 15.7 % (9.3-17.3); White Blood Count 15.8 T/CUMM (4-12)
[2021-08-31] MEDS: SODIUM CHLORIDE 0.9% 1,000 ML IV SCH ×2 (04:22→21:05)
[2021-08-31] MEDS: QUEtiapine 25 MG TABLET PO SCH (04:23)
[2021-08-31 04:38] LABS: Albumin 2.5 G/DL (3.4-5.0); Potassium 4.1 MMOL/L (3.5-5.1); Total Protein 5.3 G/DL (6.4-8.2)
[2021-08-31 04:45] LABS: Osmolality,Calculated 298.8 MOS/KG (273-304); Potassium 4.1 MMOL/L (3.5-5.1)
[2021-08-31] MEDS: carvediloL 3.125 MG TABLET PO SCH ×2 (08:09→20:34)
[2021-08-31] MEDS: PANTOPRAZOLE 40 MG TABLET PO SCH (08:09)
[2021-08-31] MEDS: DAPAGLIFLOZIN 10 MG TABLET PO SCH (08:09)
[2021-08-31] MEDS: ASCORBIC ACID 500 MG TABLET PO SCH ×2 (08:09→20:35)
[2021-08-31] MEDS: PHENAZOPYRIDINE 95 MG TABLET PO SCH ×2 (08:09→16:10)
[2021-08-31] MEDS: ASPIRIN CHEW 81 MG TABLET PO SCH (08:09)
[2021-08-31] MEDS: INSULIN REGULAR 100 UNIT/ML SUBCUT SCH ×4 (08:09→20:34)
[2021-08-31] MEDS: DOCUSATE SODIUM 100 MG CAPSULE PO SCH ×2 (08:09→20:34)
[2021-08-31] MEDS: CHLORHEXIDINE 0.12% ORAL RINSE 60 ML BOTTLE SWISH/SPIT SCH ×2 (08:10→20:35)
[2021-08-31] MEDS: DOBUTamine 500 MG/250 ML PREMIX IV SCH (13:47)
[2021-08-31 14:14] LABS: Glucose,Urine (UA) >1000 mg/dL (Negative); Ketones,Urine 80 mg/dL (Negative); Nitrite,Urine Positive (Negative); Protein,Urine 30 mg/dL (Negative); Urine Appearance Clear (Clear); Urine Color Yellow (Yellow); Urine Specific Gravity 1.015 (1.001-1.035)
[2021-08-31 14:15] LABS: Bilirubin,Urine Small mg/dL (Negative); Blood, Urine Large mg/dL (Negative)
[2021-08-31 14:16] LABS: Bacteria,Urine Occasional /HPF (Few); Mucus,Urine Occasional /LPF (Occasional); RBC,Urine 23 /HPF (0-4)
[2021-08-31] MEDS ORDERED: MYLANTA/LIDO VISC 2:1 300 ML BOTTLE SWISH/SPIT PRN (15:53)
[2021-08-31] MEDS: AMIODARONE 200 MG TABLET PO SCH ×2 (16:36→20:34)
[2021-08-31] MEDS: TAMSULOSIN 0.4 MG CAPSULE PO SCH (20:34)
[2021-08-31] MEDS: ATORVASTATIN 80 MG TABLET PO SCH (20:35)
[2021-08-31] MEDS: QUEtiapine 25 MG TABLET PO PRN (21:36)
[2021-09-01] MEDS: DILTIAZEM INJ 100 MG in SODIUM CHLORIDE 0.9% 100 ML IV SCH (00:09)
[2021-09-01 04:22] LABS: Basophils % 0.2 % (0.0-0.8); Eosinophils # 0.1 10*3/uL (0.0-0.87); Eosinophils % 0.9 % (0.00-10.9); Hematocrit 31.3 VOL% (42.0-52.0); Hemoglobin 10.4 GM/DL (14.0-18.0); Immature Granulocytes % 1.9 %; Immature Granulocytes Absolute 0.26 #; Lymphocytes # 0.9 10*3/uL (1.4-4.0); Lymphocytes % 6.5 % (21.2-54.2); Mean Corpuscular HGB Conc 33.2 GM/DL (32-36); Mean Corpuscular Volume 91.5 FL (87-102); Mean Platelet Volume 9.4 FL (9.6-12.0); Monocytes # 1.3 10*3/uL (0.11-0.8); Monocytes % 9.6 % (1.7-12.7); Neutrophils % 80.9 % (38.7-73.9); Platelet Count 250 T/CUMM (130-400); Red Blood Count 3.42 MC/CUMM (3.8-5.5); Red Cell Distribution Width 15.3 % (9.3-17.3); White Blood Count 13.7 T/CUMM (4-12)
[2021-09-01 04:40] LABS: Calcium 8.1 MG/DL (8.5-10.1); Potassium 3.7 MMOL/L (3.5-5.1)
[2021-09-01] MEDS: POTASSIUM CHLORIDE RIDER 20 MEQ/100 ML PREMIX IV PRN (05:03)
[2021-09-01] MEDS: carvediloL 3.125 MG TABLET PO SCH ×2 (08:18→21:13)
[2021-09-01] MEDS: DOCUSATE SODIUM 100 MG CAPSULE PO SCH ×2 (08:18→21:13)
[2021-09-01] MEDS: ASCORBIC ACID 500 MG TABLET PO SCH ×2 (08:18→21:14)
[2021-09-01] MEDS: PANTOPRAZOLE 40 MG TABLET PO SCH (08:18)
[2021-09-01] MEDS: PHENAZOPYRIDINE 95 MG TABLET PO SCH ×2 (08:18→16:35)
[2021-09-01] MEDS: AMIODARONE 200 MG TABLET PO SCH ×2 (08:18→21:13)
[2021-09-01] MEDS: ASPIRIN CHEW 81 MG TABLET PO SCH (08:18)
[2021-09-01] MEDS: DAPAGLIFLOZIN 10 MG TABLET PO SCH (08:18)
[2021-09-01] MEDS: LEVOFLOXACIN 500 MG TABLET PO SCH (08:19)
[2021-09-01] MEDS: INSULIN REGULAR 100 UNIT/ML SUBCUT SCH ×4 (08:19→21:13)
[2021-09-01] MEDS: CHLORHEXIDINE 0.12% ORAL RINSE 60 ML BOTTLE SWISH/SPIT SCH ×2 (08:21→21:14)
[2021-09-01] MEDS: SODIUM CHLORIDE 0.9% 1,000 ML IV SCH ×2 (15:30→23:55)
[2021-09-01] MEDS: KETOROLAC 30 MG/1 ML VIAL IV PRN (16:41)
[2021-09-01] MEDS: TAMSULOSIN 0.4 MG CAPSULE PO SCH (21:13)
[2021-09-01] MEDS: ATORVASTATIN 80 MG TABLET PO SCH (21:13)
[2021-09-01] MEDS: CHLORHEXIDINE 4% SOLN 118 ML BOTTLE TOP PRN (21:14)
[2021-09-01] MEDS: QUEtiapine 25 MG TABLET PO PRN (21:16)
[2021-09-02 03:32] LABS: Basophils % 0.2 % (0.0-0.8); Eosinophils # 0.4 10*3/uL (0.0-0.87); Eosinophils % 2.7 % (0.00-10.9); Hematocrit 31.9 VOL% (42.0-52.0); Hemoglobin 10.2 GM/DL (14.0-18.0); Immature Granulocytes % 2.7 %; Immature Granulocytes Absolute 0.34 #; Lymphocytes # 1.1 10*3/uL (1.4-4.0); Lymphocytes % 8.6 % (21.2-54.2); Mean Corpuscular Volume 93.3 FL (87-102); Mean Platelet Volume 9.1 FL (9.6-12.0); Monocytes # 1.3 10*3/uL (0.11-0.8); Monocytes % 10.1 % (1.7-12.7); Neutrophils % 75.7 % (38.7-73.9); Platelet Count 248 T/CUMM (130-400); Red Blood Count 3.42 MC/CUMM (3.8-5.5); Red Cell Distribution Width 15.6 % (9.3-17.3); White Blood Count 12.8 T/CUMM (4-12)
[2021-09-02 03:58] LABS: Potassium 3.9 MMOL/L (3.5-5.1)
[2021-09-02] MEDS: SODIUM CHLORIDE 0.9% 1,000 ML IV SCH (04:23)
[2021-09-02] MEDS: POTASSIUM CHLORIDE RIDER 20 MEQ/100 ML PREMIX IV PRN (04:24)
[2021-09-02] MEDS: DOCUSATE SODIUM 100 MG CAPSULE PO SCH ×2 (08:52→20:59)
[2021-09-02] MEDS: AMIODARONE 200 MG TABLET PO SCH ×2 (08:52→20:59)
[2021-09-02] MEDS: ASCORBIC ACID 500 MG TABLET PO SCH ×2 (08:52→20:58)
[2021-09-02] MEDS: LEVOFLOXACIN 500 MG TABLET PO SCH (08:52)
[2021-09-02] MEDS: DAPAGLIFLOZIN 10 MG TABLET PO SCH (08:52)
[2021-09-02] MEDS: carvediloL 6.25 MG TABLET PO SCH ×2 (08:52→20:59)
[2021-09-02] MEDS: PANTOPRAZOLE 40 MG TABLET PO SCH (08:52)
[2021-09-02] MEDS: PHENAZOPYRIDINE 95 MG TABLET PO SCH ×2 (08:52→17:20)
[2021-09-02] MEDS: CHLORHEXIDINE 0.12% ORAL RINSE 60 ML BOTTLE SWISH/SPIT SCH ×3 (09:00→20:59)
[2021-09-02] MEDS ORDERED: MAGNESIUM SULF RIDER 2 GM/50 ML PREMIX IV PRN (13:08)
[2021-09-02] MEDS ORDERED: DEXTROSE 10% 250 ML BAG IV PRN (13:08)
[2021-09-02] MEDS ORDERED: GLUCAGON 1 MG VIAL IM PRN (13:08)
[2021-09-02] MEDS ORDERED: ONDANSETRON 4 MG/2 ML VIAL IV PRN (13:08)
[2021-09-02] MEDS ORDERED: ALUMINUM/MAGNES/SIMETH MAX STR 30 ML UDCUP PO PRN (13:08)
[2021-09-02] MEDS ORDERED: POTASSIUM CHLORIDE 20 MEQ TABLET PO PRN (13:08)
[2021-09-02] MEDS ORDERED: ACETAMINOPHEN 325 MG TABLET PO PRN (13:08)
[2021-09-02] MEDS ORDERED: MAGNESIUM SULF RIDER 4 GM/100 ML PREMIX IV PRN (13:08)
[2021-09-02] MEDS: INSULIN REGULAR 100 UNIT/ML SUBCUT SCH ×4 (13:24→21:10)
[2021-09-02] MEDS: FERROUS SULFATE 325 MG TABLET PO SCH (13:25)
[2021-09-02] MEDS: ASPIRIN CHEW 81 MG TABLET PO SCH (13:25)
[2021-09-02] MEDS: ATORVASTATIN 80 MG TABLET PO SCH (20:59)
[2021-09-02] MEDS: QUEtiapine 25 MG TABLET PO PRN (20:59)
[2021-09-02] MEDS: TAMSULOSIN 0.4 MG CAPSULE PO SCH (20:59)
[2021-09-02] MEDS: ZALEPLON 5 MG CAPSULE PO PRN (23:35)
[2021-09-03] MEDS: SODIUM CHLORIDE 0.9% 1,000 ML IV SCH ×2 (03:02→13:30)
[2021-09-03 04:44] LABS: Basophils % 0.2 % (0.0-0.8); Eosinophils # 0.3 10*3/uL (0.0-0.87); Eosinophils % 2.6 % (0.00-10.9); Hematocrit 31.1 VOL% (42.0-52.0); Hemoglobin 9.8 GM/DL (14.0-18.0); Immature Granulocytes % 4.1 %; Immature Granulocytes Absolute 0.51 #; Lymphocytes # 0.8 10*3/uL (1.4-4.0); Lymphocytes % 6.7 % (21.2-54.2); Mean Corpuscular HGB Conc 31.5 GM/DL (32-36); Mean Corpuscular Volume 93.4 FL (87-102); Mean Platelet Volume 9.3 FL (9.6-12.0); Monocytes # 1.3 10*3/uL (0.11-0.8); Monocytes % 10.2 % (1.7-12.7); Neutrophils % 76.2 % (38.7-73.9); Platelet Count 274 T/CUMM (130-400); Red Blood Count 3.33 MC/CUMM (3.8-5.5); Red Cell Distribution Width 15.9 % (9.3-17.3); White Blood Count 12.5 T/CUMM (4-12)
[2021-09-03 05:11] LABS: Eosinophils 2 % (0-10); Hypochromia Slight; Lymphocytes 2 % (20-55); Microcytosis Slight; Platelet Estimate Adequate; Total Cells Counted 100
[2021-09-03 05:25] LABS: Alanine Aminotransferase 23 U/L (16-61); Albumin 2.6 G/DL (3.4-5.0); Alkaline Phosphatase 47 U/L (45-117); Aspartate Amino Transferase 25 U/L (0-37); Bilirubin,Indirect 0.7 MG/DL (0.0-1.0); Blood Urea Nitrogen 31 MG/DL (7-18); Calcium 8.3 MG/DL (8.5-10.1); Carbon Dioxide 23 MMOL/L (21-32); Chloride 111 MMOL/L (98-107); Glucose 141 MG/DL (74-106); Osmolality,Calculated 294.8 MOS/KG (273-304); Potassium 3.9 MMOL/L (3.5-5.1); Sodium 144 MMOL/L (136-145); Total Protein 5.4 G/DL (6.4-8.2)
[2021-09-03] MEDS: INSULIN REGULAR 100 UNIT/ML SUBCUT SCH ×4 (08:00→21:19)
[2021-09-03] MEDS: DOCUSATE SODIUM 100 MG CAPSULE PO SCH ×2 (09:00→21:19)
[2021-09-03] MEDS: APIXABAN 2.5 MG TABLET PO SCH ×2 (09:00→21:19)
[2021-09-03] MEDS: LEVOFLOXACIN 500 MG TABLET PO SCH (09:00)
[2021-09-03] MEDS: PHENAZOPYRIDINE 95 MG TABLET PO SCH ×2 (09:00→17:07)
[2021-09-03] MEDS: AMIODARONE 200 MG TABLET PO SCH ×2 (09:00→21:19)
[2021-09-03] MEDS: carvediloL 6.25 MG TABLET PO SCH ×2 (09:00→21:19)
[2021-09-03] MEDS: ASCORBIC ACID 500 MG TABLET PO SCH ×2 (09:00→21:19)
[2021-09-03] MEDS: CHLORHEXIDINE 0.12% ORAL RINSE 60 ML BOTTLE SWISH/SPIT SCH ×2 (09:00→21:19)
[2021-09-03] MEDS: FERROUS SULFATE 325 MG TABLET PO SCH (09:00)
[2021-09-03] MEDS: PANTOPRAZOLE 40 MG TABLET PO SCH (09:00)
[2021-09-03] MEDS: DAPAGLIFLOZIN 10 MG TABLET PO SCH (09:00)
[2021-09-03] MEDS: ASPIRIN CHEW 81 MG TABLET PO SCH (10:12)
[2021-09-03] MEDS: QUEtiapine 25 MG TABLET PO PRN (21:18)
[2021-09-03] MEDS: ATORVASTATIN 80 MG TABLET PO SCH (21:19)
[2021-09-03] MEDS: ZALEPLON 5 MG CAPSULE PO PRN (21:19)
[2021-09-03] MEDS: TAMSULOSIN 0.4 MG CAPSULE PO SCH (21:19)
[2021-09-04 04:05] LABS: Basophils % 0.3 % (0.0-0.8); Eosinophils # 0.3 10*3/uL (0.0-0.87); Eosinophils % 2.1 % (0.00-10.9); Hematocrit 30.9 VOL% (42.0-52.0); Hemoglobin 9.8 GM/DL (14.0-18.0); Immature Granulocytes % 4.4 %; Immature Granulocytes Absolute 0.54 #; Lymphocytes # 0.8 10*3/uL (1.4-4.0); Lymphocytes % 6.8 % (21.2-54.2); Mean Corpuscular HGB Conc 31.7 GM/DL (32-36); Mean Corpuscular Volume 93.4 FL (87-102); Mean Platelet Volume 9.3 FL (9.6-12.0); Monocytes # 0.9 10*3/uL (0.11-0.8); Monocytes % 7.6 % (1.7-12.7); Neutrophils % 78.8 % (38.7-73.9); Platelet Count 278 T/CUMM (130-400); Red Blood Count 3.31 MC/CUMM (3.8-5.5); Red Cell Distribution Width 15.9 % (9.3-17.3); White Blood Count 12.2 T/CUMM (4-12)
[2021-09-04 04:26] LABS: Albumin 2.7 G/DL (3.4-5.0); Band Neutrophils 1 % (0-10); Bilirubin,Direct 0.26 MG/DL (0.0-0.20); Bilirubin,Indirect 0.6 MG/DL (0.0-1.0); Bilirubin,Total 0.9 MG/DL (0.20-1.00); CKMB % 4.29 %; Calcium 8.6 MG/DL (8.5-10.1); High Sensitive Troponin I* 1814.6 ng/L (0-78); Lymphocytes 5 % (20-55); Platelet Estimate Adequate; Potassium 3.8 MMOL/L (3.5-5.1); Total Cells Counted 100; Total Protein 5.6 G/DL (6.4-8.2)
[2021-09-04] MEDS: SODIUM CHLORIDE 0.9% 1,000 ML IV SCH (07:11)
[2021-09-04] MEDS: INSULIN REGULAR 100 UNIT/ML SUBCUT SCH ×4 (08:00→22:07)
[2021-09-04] MEDS: PHENAZOPYRIDINE 95 MG TABLET PO SCH ×2 (08:00→16:50)
[2021-09-04] MEDS: LEVOFLOXACIN 500 MG TABLET PO SCH (08:00)
[2021-09-04] MEDS: carvediloL 6.25 MG TABLET PO SCH ×2 (09:00→20:45)
[2021-09-04] MEDS: ASPIRIN CHEW 81 MG TABLET PO SCH (09:00)
[2021-09-04] MEDS: ASCORBIC ACID 500 MG TABLET PO SCH ×2 (09:00→20:45)
[2021-09-04] MEDS: DOCUSATE SODIUM 100 MG CAPSULE PO SCH ×2 (09:00→20:44)
[2021-09-04] MEDS: APIXABAN 2.5 MG TABLET PO SCH ×2 (09:00→20:45)
[2021-09-04] MEDS: FERROUS SULFATE 325 MG TABLET PO SCH (09:00)
[2021-09-04] MEDS: DAPAGLIFLOZIN 10 MG TABLET PO SCH (09:00)
[2021-09-04] MEDS: PANTOPRAZOLE 40 MG TABLET PO SCH (09:00)
[2021-09-04] MEDS: AMIODARONE 200 MG TABLET PO SCH ×2 (09:00→20:45)
[2021-09-04] MEDS: CHLORHEXIDINE 0.12% ORAL RINSE 60 ML BOTTLE SWISH/SPIT SCH ×2 (09:00→22:07)
[2021-09-04] MEDS: TAMSULOSIN 0.4 MG CAPSULE PO SCH (20:44)
[2021-09-04] MEDS: ATORVASTATIN 80 MG TABLET PO SCH (20:44)
[2021-09-04] MEDS: ZALEPLON 5 MG CAPSULE PO PRN (20:54)
[2021-09-05] MEDS: INSULIN REGULAR 100 UNIT/ML SUBCUT SCH ×5 (00:46→20:25)
[2021-09-05 05:28] LABS: Basophils # 0.1 10*3/uL (0.0-0.2); Basophils % 0.4 % (0.0-0.8); Eosinophils # 0.2 10*3/uL (0.0-0.87); Eosinophils % 1.5 % (0.00-10.9); Hematocrit 31.7 VOL% (42.0-52.0); Hemoglobin 10.2 GM/DL (14.0-18.0); Immature Granulocytes % 4.6 %; Lymphocytes # 0.8 10*3/uL (1.4-4.0); Mean Corpuscular HGB Conc 32.2 GM/DL (32-36); Mean Corpuscular Volume 92.2 FL (87-102); Mean Platelet Volume 8.5 FL (9.6-12.0); Monocytes # 0.8 10*3/uL (0.11-0.8); Monocytes % 5.9 % (1.7-12.7); Neutrophils % 81.6 % (38.7-73.9); Platelet Count 280 T/CUMM (130-400); Red Blood Count 3.44 MC/CUMM (3.8-5.5); Red Cell Distribution Width 16.3 % (9.3-17.3); White Blood Count 12.9 T/CUMM (4-12)
[2021-09-05 05:50] LABS: Eosinophils 3 % (0-10); Lymphocytes 10 % (20-55); Platelet Estimate Adequate; Total Cells Counted 100
[2021-09-05 05:58] LABS: Calcium 8.7 MG/DL (8.5-10.1); Potassium 4.2 MMOL/L (3.5-5.1); Total Protein 5.9 G/DL (6.4-8.2)
[2021-09-05] MEDS: FERROUS SULFATE 325 MG TABLET PO SCH (09:38)
[2021-09-05] MEDS: DOCUSATE SODIUM 100 MG CAPSULE PO SCH ×2 (09:38→20:24)
[2021-09-05] MEDS: ASCORBIC ACID 500 MG TABLET PO SCH ×2 (09:38→20:24)
[2021-09-05] MEDS: carvediloL 6.25 MG TABLET PO SCH ×2 (09:39→20:24)
[2021-09-05] MEDS: PANTOPRAZOLE 40 MG TABLET PO SCH (09:39)
[2021-09-05] MEDS: PHENAZOPYRIDINE 95 MG TABLET PO SCH ×2 (09:39→18:12)
[2021-09-05] MEDS: VALSARTAN 80 MG TABLET PO SCH (09:39)
[2021-09-05] MEDS: LEVOFLOXACIN 500 MG TABLET PO SCH (09:39)
[2021-09-05] MEDS: CHLORHEXIDINE 0.12% ORAL RINSE 60 ML BOTTLE SWISH/SPIT SCH ×2 (09:40→20:24)
[2021-09-05] MEDS: AMIODARONE 200 MG TABLET PO SCH ×2 (09:40→20:24)
[2021-09-05] MEDS: ASPIRIN CHEW 81 MG TABLET PO SCH (09:40)
[2021-09-05] MEDS: DAPAGLIFLOZIN 10 MG TABLET PO SCH (09:40)
[2021-09-05] MEDS: APIXABAN 2.5 MG TABLET PO SCH ×2 (09:40→20:24)
[2021-09-05] MEDS: POLYETHYLENE GLYCOL POWDER 17 GM PACK PO SCH (12:38)
[2021-09-05] MEDS: ATORVASTATIN 80 MG TABLET PO SCH (20:23)
[2021-09-05] MEDS: ZALEPLON 5 MG CAPSULE PO PRN (20:23)
[2021-09-05] MEDS: TAMSULOSIN 0.4 MG CAPSULE PO SCH (20:24)
[2021-09-06 05:49] LABS: Basophils # 0.1 10*3/uL (0.0-0.2); Basophils % 0.3 % (0.0-0.8); Eosinophils % 0.3 % (0.00-10.9); Hematocrit 34.5 VOL% (42.0-52.0); Immature Granulocytes Absolute 0.72 #; Lymphocytes # 0.7 10*3/uL (1.4-4.0); Lymphocytes % 4.9 % (21.2-54.2); Mean Corpuscular HGB Conc 31.9 GM/DL (32-36); Mean Corpuscular Volume 93.2 FL (87-102); Mean Platelet Volume 9.3 FL (9.6-12.0); Monocytes # 0.7 10*3/uL (0.11-0.8); Monocytes % 5.1 % (1.7-12.7); Neutrophils % 84.4 % (38.7-73.9); Platelet Count 337 T/CUMM (130-400); Red Cell Distribution Width 16.5 % (9.3-17.3); White Blood Count 14.4 T/CUMM (4-12)
[2021-09-06 06:07] LABS: Albumin 2.9 G/DL (3.4-5.0); Bilirubin,Direct 0.31 MG/DL (0.0-0.20); Bilirubin,Indirect 0.8 MG/DL (0.0-1.0); Bilirubin,Total 1.1 MG/DL (0.20-1.00); CKMB % 5.66 %; Calcium 8.1 MG/DL (8.5-10.1); Osmolality,Calculated 297.7 MOS/KG (273-304); Potassium 3.8 MMOL/L (3.5-5.1); Total Protein 5.9 G/DL (6.4-8.2)
[2021-09-06 06:08] LABS: High Sensitive Troponin I* 944.4 ng/L (0-78)
[2021-09-06 06:30] LABS: Band Neutrophils 1 % (0-10); Lymphocytes 5 % (20-55); Platelet Estimate Adequate; Total Cells Counted 100
[2021-09-06] MEDS: FERROUS SULFATE 325 MG TABLET PO SCH (09:44)
[2021-09-06] MEDS: ASCORBIC ACID 500 MG TABLET PO SCH ×2 (09:44→21:06)
[2021-09-06] MEDS: PANTOPRAZOLE 40 MG TABLET PO SCH (09:45)
[2021-09-06] MEDS: DOCUSATE SODIUM 100 MG CAPSULE PO SCH ×2 (09:45→21:06)
[2021-09-06] MEDS: PHENAZOPYRIDINE 95 MG TABLET PO SCH ×2 (09:45→17:32)
[2021-09-06] MEDS: AMIODARONE 200 MG TABLET PO SCH ×2 (09:45→21:06)
[2021-09-06] MEDS: POLYETHYLENE GLYCOL POWDER 17 GM PACK PO SCH (09:45)
[2021-09-06] MEDS: DAPAGLIFLOZIN 10 MG TABLET PO SCH (09:45)
[2021-09-06] MEDS: VALSARTAN 80 MG TABLET PO SCH (09:45)
[2021-09-06] MEDS: ASPIRIN CHEW 81 MG TABLET PO SCH (09:45)
[2021-09-06] MEDS: carvediloL 6.25 MG TABLET PO SCH ×2 (09:45→21:06)
[2021-09-06] MEDS: CHLORHEXIDINE 0.12% ORAL RINSE 60 ML BOTTLE SWISH/SPIT SCH ×2 (09:46→21:06)
[2021-09-06] MEDS: INSULIN REGULAR 100 UNIT/ML SUBCUT SCH ×4 (11:35→21:26)
[2021-09-06] MEDS: MAGNESIUM HYDROXIDE SUSP 30 ML UDCUP PO PRN (12:34)
[2021-09-06] MEDS: TAMSULOSIN 0.4 MG CAPSULE PO SCH (21:06)
[2021-09-06] MEDS: ATORVASTATIN 80 MG TABLET PO SCH (21:06)
[2021-09-07 05:28] LABS: Basophils % 0.3 % (0.0-0.8); Eosinophils % 0.3 % (0.00-10.9); Hematocrit 34.9 VOL% (42.0-52.0); Hemoglobin 10.9 GM/DL (14.0-18.0); Immature Granulocytes % 2.8 %; Immature Granulocytes Absolute 0.41 #; Lymphocytes # 0.8 10*3/uL (1.4-4.0); Lymphocytes % 5.5 % (21.2-54.2); Mean Corpuscular HGB Conc 31.2 GM/DL (32-36); Mean Corpuscular Volume 95.6 FL (87-102); Mean Platelet Volume 9.4 FL (9.6-12.0); Monocytes # 0.6 10*3/uL (0.11-0.8); Neutrophils % 87.1 % (38.7-73.9); Platelet Count 380 T/CUMM (130-400); Red Blood Count 3.65 MC/CUMM (3.8-5.5); White Blood Count 14.7 T/CUMM (4-12)
[2021-09-07 05:46] LABS: Albumin 2.9 G/DL (3.4-5.0); Bilirubin,Direct 0.31 MG/DL (0.0-0.20); Bilirubin,Indirect 0.7 MG/DL (0.0-1.0); CKMB % 6.13 %; Calcium 8.3 MG/DL (8.5-10.1); Osmolality,Calculated 297.7 MOS/KG (273-304); Potassium 3.9 MMOL/L (3.5-5.1); Total Protein 5.8 G/DL (6.4-8.2)
[2021-09-07 05:47] LABS: High Sensitive Troponin I* 693.9 ng/L (0-78)
[2021-09-07] MEDS: INSULIN REGULAR 100 UNIT/ML SUBCUT SCH ×4 (09:00→21:50)
[2021-09-07] MEDS: ASCORBIC ACID 500 MG TABLET PO SCH ×2 (09:01→21:27)
[2021-09-07] MEDS: VALSARTAN 80 MG TABLET PO SCH (09:01)
[2021-09-07] MEDS: FERROUS SULFATE 325 MG TABLET PO SCH (09:01)
[2021-09-07] MEDS: PANTOPRAZOLE 40 MG TABLET PO SCH (09:01)
[2021-09-07] MEDS: carvediloL 6.25 MG TABLET PO SCH ×2 (09:01→21:27)
[2021-09-07] MEDS: POLYETHYLENE GLYCOL POWDER 17 GM PACK PO SCH (09:02)
[2021-09-07] MEDS: AMIODARONE 200 MG TABLET PO SCH ×2 (09:02→21:27)
[2021-09-07] MEDS: DAPAGLIFLOZIN 10 MG TABLET PO SCH (09:02)
[2021-09-07] MEDS: PHENAZOPYRIDINE 95 MG TABLET PO SCH ×2 (09:02→17:38)
[2021-09-07] MEDS: DOCUSATE SODIUM 100 MG CAPSULE PO SCH ×2 (09:02→21:27)
[2021-09-07] MEDS: ASPIRIN CHEW 81 MG TABLET PO SCH (09:02)
[2021-09-07] MEDS: CHLORHEXIDINE 0.12% ORAL RINSE 60 ML BOTTLE SWISH/SPIT SCH ×2 (09:02→21:27)
[2021-09-07] MEDS: MAGNESIUM HYDROXIDE SUSP 30 ML UDCUP PO PRN (09:03)
[2021-09-07] MEDS ORDERED: POTASSIUM CHLORIDE 20 MEQ TABLET PO ONE (09:51)
[2021-09-07] MEDS ORDERED: TUBERCULIN SKIN TEST 0.1 ML SYRINGE INTRADERM ONE (10:08)
[2021-09-07] MEDS: APIXABAN 2.5 MG TABLET PO SCH ×2 (10:12→21:27)
[2021-09-07] MEDS: TAMSULOSIN 0.4 MG CAPSULE PO SCH (21:27)
[2021-09-07] MEDS: ATORVASTATIN 80 MG TABLET PO SCH (21:27)
[2021-09-08 05:44] LABS: Basophils % 0.1 % (0.0-0.8); Eosinophils % 0.1 % (0.00-10.9); Hematocrit 34.3 VOL% (42.0-52.0); Hemoglobin 10.8 GM/DL (14.0-18.0); Immature Granulocytes Absolute 0.33 #; Lymphocytes # 0.8 10*3/uL (1.4-4.0); Lymphocytes % 4.9 % (21.2-54.2); Mean Corpuscular HGB Conc 31.5 GM/DL (32-36); Mean Corpuscular Volume 95.3 FL (87-102); Mean Platelet Volume 9.4 FL (9.6-12.0); Monocytes # 0.8 10*3/uL (0.11-0.8); Monocytes % 4.7 % (1.7-12.7); Neutrophils % 88.2 % (38.7-73.9); Platelet Count 357 T/CUMM (130-400); Red Cell Distribution Width 17.3 % (9.3-17.3); White Blood Count 16.5 T/CUMM (4-12)
[2021-09-08 06:01] LABS: Calcium 8.5 MG/DL (8.5-10.1); Potassium 3.6 MMOL/L (3.5-5.1)
[2021-09-08 06:15] LABS: Lymphocytes 9 % (20-55); Total Cells Counted 100
[2021-09-08 06:16] LABS: Anisocytosis 1+; Ovalocytes Slight
[2021-09-08 06:17] LABS: Platelet Estimate Normal
[2021-09-08] MEDS: INSULIN REGULAR 100 UNIT/ML SUBCUT SCH ×2 (08:24→11:24)
[2021-09-08] MEDS: POLYETHYLENE GLYCOL POWDER 17 GM PACK PO SCH (08:25)
[2021-09-08] MEDS: carvediloL 6.25 MG TABLET PO SCH (08:26)
[2021-09-08] MEDS: DAPAGLIFLOZIN 10 MG TABLET PO SCH (08:26)
[2021-09-08] MEDS: DOCUSATE SODIUM 100 MG CAPSULE PO SCH (08:26)
[2021-09-08] MEDS: APIXABAN 2.5 MG TABLET PO SCH (08:26)
[2021-09-08] MEDS: PANTOPRAZOLE 40 MG TABLET PO SCH (08:26)
[2021-09-08] MEDS: ASCORBIC ACID 500 MG TABLET PO SCH (08:26)
[2021-09-08] MEDS: AMIODARONE 200 MG TABLET PO SCH (08:27)
[2021-09-08] MEDS: VALSARTAN 80 MG TABLET PO SCH (08:27)
[2021-09-08] MEDS: FERROUS SULFATE 325 MG TABLET PO SCH (08:27)
[2021-09-08] MEDS: ASPIRIN CHEW 81 MG TABLET PO SCH (08:27)
[2021-09-08] MEDS: PHENAZOPYRIDINE 95 MG TABLET PO SCH (08:27)
[2021-09-08] MEDS: CHLORHEXIDINE 0.12% ORAL RINSE 60 ML BOTTLE SWISH/SPIT SCH (08:28)
[2021-09-08 08:32] VITALS: BP 138/81
== END 2021-09-08 12:15 | disposition swing bed (61) | DRG 231 ==
LOC: N.ED 18:39 → N.ICU 19:14 → N.EDINP 19:56 → N.ICU 20:13 → N.CVR 08-26 06:56 → N.ICU 08-27 18:03 → N.TELES 09-04 10:48
PROVIDERS: ADMIT Internal Medicine Cardiovascular Disease
PROC: CLCCHCL (ICD-10-PCS; 2021-08-24 19:45)